=== PATIENT | female | born 1970 | race Caucasian/White ===

== ENCOUNTER 2019-01-06 18:46 | Emergency (ER) | payer OTHER ==
[~2019-01-06] VITALS: Ht 162.6 cm; Wt 88.0 kg
[~2019-01-06 18:46] MED LIST: BENADRYL25 MG PO; ZYRTEC10 M3 PO
== END 2019-01-06 20:34 | disposition home or self-care (01) ==
LOC: ER 18:46
DX: R06.02 Shortness of breath (principal); R07.89 Other chest pain; F06.4 Anxiety disorder due to known physiological condition

== ENCOUNTER 2019-01-24 07:43 | Outpatient (CLI) | payer OTHER | END 2019-01-24 08:02 | disposition home or self-care (01) | LOC: NUCLEAR 07:43 | DX: I20.9 Angina pectoris, unspecified (principal) | CPT/HCPCS: 78452; 93017; A9500 ==